=== PATIENT | female | born 1955 | race African-American/Black ===

== ENCOUNTER 2016-11-08 21:16 | Emergency (ER) | payer OTHER, SELFPAY ==
[2016-11-08] MEDS ORDERED: cloNIDine HCl 0.1 MG TAB ONE (22:02)
[2016-11-08] MEDS ORDERED: Ibuprofen 200 MG TAB ONE ×2 (22:02→22:38)
--- NOTE | 2016-11-08 23:29 | RAD ---
RIGHT WRIST RADIOGRAPHS THREE VIEWS: Date: 11-08-16 Provided Clinical History: Right wrist pain status post injury. FINDINGS: No evidence for fracture or other acute osseous abnormality. Minimal triquetral coalition is seen, a normal anatomic variant. If there is persistent clinical concern, conservative management and fol low up imaging are advised. IMPRESSION: As above. POS: [facility]
== END 2016-11-08 22:40 | disposition home or self-care (01) ==
LOC: NAV ERS 21:16
DX: S63.501A Unspecified sprain of right wrist, initial encounter (principal); I10 Essential (primary) hypertension; Z87.891 Personal history of nicotine dependence; W19.XXXA Unspecified fall, initial encounter
CPT/HCPCS: 99283

== ENCOUNTER 2018-01-16 17:03 | Emergency (ER) | payer SELFPAY ==
[2018-01-16] MEDS ORDERED: Morphine 4 MG/ML Carpuject ONE (17:44)
[2018-01-16] MEDS ORDERED: HYDROcodone/Acetaminophen 5/325 mg Tablet ONE (18:35)
--- NOTE | 2018-01-16 18:36 | CT ---
CT OF THE BRAIN WITHOUT CONTRAST: Date: 01/16/18 INDICATION: Fall, striking back on table, with right hip pain. FINDINGS: No acute infarct, hemorrhage, or hydrocephalus present. There are calcifications involving the basal ganglia. Septum pellucidum and third ventricle are midline. Skull is intact. IMPRESSION: No acute intracranial abnormality. POS: [facility]
--- NOTE | 2018-01-16 18:43 | RAD ---
PA AND LATERAL CHEST: Date: 01/16/18 INDICATION: Fall with che4st pain. FINDINGS: Lungs are hyperinflated but clear. Cardiomediastinal silhouette is within normal limits. No pleural e ffusion or pneumothorax is evident. No acute osseous abnormality is evident. Examination does not malathi ear appreciably changed from comparison dated 09/21/10. IMPRESSION: No definite acute cardiopulmonary abnormality. POS: [facility]
== END 2018-01-16 18:40 | disposition home or self-care (01) ==
LOC: NAV ERS 17:03
DX: S20.211A Contusion of right front wall of thorax, initial encounter (principal); I10 Essential (primary) hypertension; Z87.891 Personal history of nicotine dependence; W07.XXXA Fall from chair, initial encounter
CPT/HCPCS: 70450; 71046; 96372; J2270

== ENCOUNTER 2018-12-27 14:03 | Outpatient (CLI) | payer OTHER ==
--- NOTE | 2018-12-27 15:20 | RAD ---
RIGHT HAND TWO VIEWS: HISTORY: Right hand pain. COMPARISON: None. FINDINGS: Two views of the right hand show no evidence of acute fracture or dislocation. Mild degenerative candi nges are seen in the thumb interphalangeal joint and metacarpophalangeal joint. IMPRESSION: Mild thumb degenerative change without acute osseous abnormality. POS: [facility]
== END 2018-12-27 14:04 | disposition home or self-care (01) ==
LOC: NAV RAD 14:03
PROVIDERS: ATTEND Family Medicine
DX: Z02.71 Encounter for disability determination (principal); M79.641 Pain in right hand; M19.041 Primary osteoarthritis, right hand

== ENCOUNTER 2020-04-22 16:25 | Emergency (ER) | payer SELFPAY | END 2020-04-22 17:05 | disposition home or self-care (01) | LOC: NAV ERS 16:25 | DX: S31.010D Laceration without foreign body of lower back and pelvis without penetration into retroperitoneum, subsequent encounter (principal); F17.210 Nicotine dependence, cigarettes, uncomplicated; I10 Essential (primary) hypertension; Z86.73 Personal history of transient ischemic attack (TIA), and cerebral infarction without residual deficits; X99.9XXD Assault by unspecified sharp object, subsequent encounter ==